=== PATIENT | male | born 1950 | race Caucasian/White ===

== ENCOUNTER 2023-07-07 07:59 | Inpatient (IN) | payer MEDICARE ==
[2023-07-07] MEDS ORDERED: Ondansetron PF 4 MG/2 ML Vial IVP PRN (11:29)
[2023-07-07] MEDS ORDERED: Ipratropium/Albuterol 3 ML NEB NEB PRN (11:29)
[2023-07-07] MEDS ORDERED: Cyclobenzaprine 10 MG TAB PO PRN (11:32)
[2023-07-07] MEDS: traMADol HCl 50 MG TAB PO SCH ×3 (12:57→22:49)
[2023-07-07] MEDS: traMADol HCl 50 MG TAB PO PRN (12:58)
[2023-07-07 13:45] VITALS: BMI 27.3
[2023-07-07] MEDS: Morphine 2 MG/ML VIAL SLOW IVP PRN (15:46)
[2023-07-07] MEDS: Senokot S 8.6-50 MG TAB PO SCH (21:06)
[2023-07-07] MEDS: Famotidine 20 MG TAB PO SCH (21:06)
[2023-07-08] MEDS: Morphine 2 MG/ML VIAL SLOW IVP PRN (03:34)
[2023-07-08] MEDS: traMADol HCl 50 MG TAB PO SCH ×4 (04:59→21:59)
[2023-07-08 05:48] LABS: #Basophils 0.1 thou/uL (0.0-0.2); #Eosinphils 0.6 thou/uL (0.0-0.7); #Monocytes 1.1 thou/uL (0.11-0.59); #Neutrophils 9.2 thou/uL (1.40-6.50); %Basophils 0.7 % (0.0-1.0); %Eosinophils 4.6 % (0.0-10.0); %Lymphocytes 9.2 % (21.0-51.0); %Neutrophils 76.1 % (42.0-75.0); Hematocrit 43.6 % (42.0-52.0); Hemoglobin 14.6 g/dL (14.0-18.0); Mean Corpuscular HGB CONC 33.5 g/dL (32.0-36.0); Mean Corpuscular Hemoglobin 31.8 pg (27.0-31.0); Mean Platelet Volume 9.8 fL (7.4-10.4); Platelet Count 232 10x3/uL (130-400); RBC Distribution Width 14.5 % (11.5-14.5); Red Blood Cell (RBC) Count 4.59 mill/uL (4.70-6.10); White Blood Cell (WBC) Count 12.2 10x3/uL (4.8-10.8)
[2023-07-08 06:00] LABS: INR-International Normal Ratio 1.2; Prothrombin Time 15.1 sec (12.0-14.7)
[2023-07-08 06:01] LABS: PTT 34.3 sec (22.9-36.1)
[2023-07-08 06:13] LABS: Anion Gap 12 mmol/L (10-20); BUN (Urea Nitrogen) 17 mg/dL (8.4-25.7); Calc. Creatinine Clearance 77 mL/min (70-130); Calcium 9.3 mg/dL (7.8-10.44); Carbon Dioxide 25 mmol/L (23-31); Chloride 104 mmol/L (98-107); Estimated GFR 75; Glucose 103 mg/dL (83-110); Potassium 3.9 mmol/L (3.5-5.1); Sodium 137 mmol/L (136-145)
[2023-07-08] MEDS ORDERED: fentaNYL PF 100 MCG/2 ML SYRINGE ONE (07:08)
[2023-07-08] MEDS: Polyethylene Glycol 3350 17 GM Packet PO SCH (07:35)
[2023-07-08] MEDS: Senokot S 8.6-50 MG TAB PO SCH ×2 (07:35→21:55)
[2023-07-08] MEDS: Famotidine 20 MG TAB PO SCH ×2 (07:35→21:55)
[2023-07-08] MEDS ORDERED: Sodium Chloride 0.9% 100 ML ONE (07:41)
[2023-07-08] MEDS ORDERED: CEFAZOLIN 2 GM VIAL ONE (07:41)
[2023-07-08] MEDS ORDERED: CEFAZOLIN 2 GM in Sodium Chloride 0.9% 100 ML IVPB SCH (08:00)
[2023-07-08] MEDS ORDERED: Dexamethasone 20 MG/5 ML VIAL ONE (08:10)
[2023-07-08] MEDS ORDERED: NEOSTIGMINE 3 MG/3 ML SYR 3 MG/3 ML SYRINGE ONE (08:10)
[2023-07-08] MEDS ORDERED: Glycopyrrolate 0.2 MG/ML 5 ML SYRINGE ONE (08:10)
[2023-07-08] MEDS ORDERED: Ondansetron PF 4 MG/2 ML Vial ONE (08:10)
[2023-07-08] MEDS ORDERED: Lidocaine 1% PF 5 ML VIAL ONE (08:10)
[2023-07-08] MEDS ORDERED: Rocuronium Bromide 10 MG/ML (10ML VIAL) ONE (08:10)
[2023-07-08] MEDS ORDERED: PHENYLEPHRINE-NS 100 MCG/ML 10 ML SYRINGE ONE (08:10)
[2023-07-08] MEDS ORDERED: PROPOFOL 200 MG/20 ML VIAL ONE (08:10)
[2023-07-08] MEDS ORDERED: Ondansetron HCl/PF 4 MG/2 ML Vial IVP PRN (09:44)
[2023-07-08] MEDS ORDERED: Promethazine HCl 25 MG/ML VIAL IM PRN (09:44)
[2023-07-08] MEDS ORDERED: fentaNYL 50 mcg/mL 1 mL Vial ONE (09:46)
[2023-07-08] MEDS: CEFAZOLIN 2 GM in Sodium Chloride 0.9% 100 ML IVPB SCH ×2 (13:41→21:55)
[2023-07-09] MEDS: Morphine 2 MG/ML VIAL SLOW IVP PRN (00:15)
[2023-07-09] MEDS: traMADol HCl 50 MG TAB PO SCH ×4 (06:12→22:11)
[2023-07-09] MEDS: CEFAZOLIN 2 GM in Sodium Chloride 0.9% 100 ML IVPB SCH (07:11)
[2023-07-09 07:38] LABS: #Monocytes 1.6 thou/uL (0.11-0.59); #Neutrophils 11.8 thou/uL (1.40-6.50); %Basophils 0.1 % (0.0-1.0); %Eosinophils 0.2 % (0.0-10.0); %Lymphocytes 7.4 % (21.0-51.0); %Monocytes 10.6 % (0.0-10.0); %Neutrophils 81.3 % (42.0-75.0); Hematocrit 42.1 % (42.0-52.0); Hemoglobin 14.1 g/dL (14.0-18.0); Mean Corpuscular HGB CONC 33.5 g/dL (32.0-36.0); Mean Corpuscular Hemoglobin 31.5 pg (27.0-31.0); Mean Corpuscular Volume 94.2 fl (78.0-98.0); Mean Platelet Volume 10.1 fL (7.4-10.4); Platelet Count 233 10x3/uL (130-400); RBC Distribution Width 14.2 % (11.5-14.5); Red Blood Cell (RBC) Count 4.47 mill/uL (4.70-6.10); White Blood Cell (WBC) Count 14.6 10x3/uL (4.8-10.8)
[2023-07-09] MEDS ORDERED: Aspirin Chewable 81 MG TAB PO SCH (09:00)
[2023-07-09] MEDS ORDERED: Non-Formulary Item 1 EACH (Sertraline Hcl [Zoloft] 50 MG Tablet) PO SCH (09:00)
[2023-07-09] MEDS ORDERED: Non-Formulary Item 1 EACH (Atorvastatin Calcium [Lipitor] 80 MG Tablet) PO SCH (09:00)
[2023-07-09] MEDS: Tamsulosin HCl 0.4 MG CAP PO SCH (09:25)
[2023-07-09] MEDS: Senokot S 8.6-50 MG TAB PO SCH ×2 (09:25→20:33)
[2023-07-09] MEDS: Gabapentin 300 MG CAP PO SCH ×3 (09:25→20:33)
[2023-07-09] MEDS: Sertraline 25 MG TAB PO SCH (09:25)
[2023-07-09] MEDS: traMADol HCl 50 MG TAB PO PRN (09:26)
[2023-07-09] MEDS: Famotidine 20 MG TAB PO SCH ×2 (09:26→20:33)
[2023-07-09] MEDS: Polyethylene Glycol 3350 17 GM Packet PO SCH (09:26)
[2023-07-09] MEDS: Lisinopril 20 MG TAB PO SCH (09:26)
[2023-07-09 10:17] LABS: #Eosinphils 0.1 thou/uL (0.0-0.7); #Monocytes 1.1 thou/uL (0.11-0.59); #Neutrophils 11.6 thou/uL (1.40-6.50); %Basophils 0.2 % (0.0-1.0); %Eosinophils 0.5 % (0.0-10.0); %Lymphocytes 7.5 % (21.0-51.0); %Monocytes 7.9 % (0.0-10.0); %Neutrophils 83.6 % (42.0-75.0); Hematocrit 41.4 % (42.0-52.0); Hemoglobin 13.5 g/dL (14.0-18.0); Mean Corpuscular HGB CONC 32.6 g/dL (32.0-36.0); Mean Corpuscular Hemoglobin 31.5 pg (27.0-31.0); Mean Corpuscular Volume 96.5 fl (78.0-98.0); Mean Platelet Volume 9.7 fL (7.4-10.4); Platelet Count 215 10x3/uL (130-400); RBC Distribution Width 14.3 % (11.5-14.5); Red Blood Cell (RBC) Count 4.29 mill/uL (4.70-6.10); White Blood Cell (WBC) Count 13.9 10x3/uL (4.8-10.8)
[2023-07-09] MEDS: Acetaminophen 325 MG TAB PO SCH ×2 (16:50→20:35)
[2023-07-09] MEDS: Ibuprofen 200 MG TAB PO SCH ×2 (16:50→22:11)
[2023-07-09] MEDS: Ferrous Sulfate 325 MG TAB PO SCH (16:51)
[2023-07-09] MEDS ORDERED: Atorvastatin Calcium 40 MG TAB PO SCH (21:00)
[2023-07-10] MEDS: Acetaminophen 325 MG TAB PO SCH ×3 (03:13→16:10)
[2023-07-10] MEDS: traMADol HCl 50 MG TAB PO SCH ×3 (05:08→17:57)
[2023-07-10] MEDS ORDERED: Aspirin Chewable 81 MG TAB PO SCH (09:00)
[2023-07-10] MEDS: Gabapentin 300 MG CAP PO SCH ×2 (09:15→16:10)
[2023-07-10] MEDS: Tamsulosin HCl 0.4 MG CAP PO SCH (09:15)
[2023-07-10] MEDS: Sertraline 25 MG TAB PO SCH (09:15)
[2023-07-10] MEDS: Senokot S 8.6-50 MG TAB PO SCH (09:16)
[2023-07-10] MEDS: Ferrous Sulfate 325 MG TAB PO SCH ×2 (09:16→16:11)
[2023-07-10] MEDS: traMADol HCl 50 MG TAB PO PRN (09:16)
[2023-07-10] MEDS: Famotidine 20 MG TAB PO SCH (09:16)
[2023-07-10] MEDS: Ascorbic Acid 500 mg Chewable Tablet PO SCH ×2 (09:16→16:11)
[2023-07-10] MEDS: Lisinopril 20 MG TAB PO SCH (09:16)
[2023-07-10] MEDS: Polyethylene Glycol 3350 17 GM Packet PO SCH (09:17)
[2023-07-10] MEDS: Ibuprofen 200 MG TAB PO SCH ×2 (09:22→16:11)
[2023-07-10 12:43] VITALS: BP 122/70; TEMP 98.1
== END 2023-07-10 19:00 | DRG 522 ==
LOC: SJJU 10:46
PROVIDERS: ADMIT Specialist; ATTEND Specialist
PROC: 0SRR0JZ Replacement of Right Hip Joint, Femoral Surface with Synthetic Substitute, Open Approach (ICD-10-PCS; principal; 2023-07-08)
DX: S72.011A Unspecified intracapsular fracture of right femur, initial encounter for closed fracture (principal); N40.0 Benign prostatic hyperplasia without lower urinary tract symptoms; K21.9 Gastro-esophageal reflux disease without esophagitis; W19.XXXA Unspecified fall, initial encounter; R13.10 Dysphagia, unspecified; Z79.82 Long term (current) use of aspirin; Z79.899 Other long term (current) drug therapy; I69.320 Aphasia following cerebral infarction; I69.391 Dysphagia following cerebral infarction; Y92.129 Unspecified place in nursing home as the place of occurrence of the external cause
CPT/HCPCS: 36415; 72170; 80048; 85025; 85610; 85730; C1713; C1776; J1100; J2272; J2405; J2704; J3010; J3490